=== PATIENT | female | born 1990 | race American Indian/Alaskan Native ===

== ENCOUNTER 2017-11-18 21:59 | Emergency (ER) | payer SELFPAY ==
[2017-11-18 22:39] VITALS: BP 135/82
[2017-11-18] MEDS ORDERED: MOTRIN PO ONE (22:39)
--- NOTE | 2017-11-19 00:05 | XRay Report ---
FINAL REPORT EXAM: XR KNEE 3V LT HISTORY: Left knee pain TECHNIQUE: Three views of the left knee PRIORS: None. FINDINGS: The bones are normally aligned and mineralized. The joint spaces are well-preserved. There is no evidence of acute fracture. The soft tissues are unremarkable. IMPRESSION: No evidence of acute fracture or subluxation. Normal left knee series
--- NOTE | 2017-11-19 02:53 | Emergency Department Report ---
ED Lower Extremity HPI - General Chief Complaint: Extremity Injury, Lower Stated Complaint: LEFT KNEE PAIN Time Seen by Provider: 11/19/17 02:36 Source: patient Mode of arrival: Ambulatory Limitations: No Limitations - History of Present Illness Initial Comments: 27-year-old -[place] female comes to the emergency room after having a trip and fall today at home and injured her left knee. Patient complains of swelling and pain. She reports her pain is a 9 out of 10. Patient reports this happened about 7:30 PM on Friday evening. She did not take anything for pain she was given Motrin in triage which she reports has helped. Patient reports she is able to bear weight no ice applied able to fully bend her knee but to fully extend it causes pain. Patient has no past medical history currently takes no medications has no known drug allergies. MD Complaint: knee injury -: Last night Time: 19:30 (Friday) Injury: Knee: Left (name of swelling) Place: home Severity scale (0 -10): 9 Improves With: NSAID Worsens With: other (fully extension) Context: fall - Related Data Previous Rx's Medication Instructions Recorded Last Taken Type Ibuprofen [Motrin 600 MG tab] 600 mg PO Q8H PRN #15 tablet 11/19/17 Unknown Rx Allergies Allergy/AdvReac Type Severity Reaction Status Date / Time No Known Allergies Allergy Unverified 11/18/17 22:38 ED Review of Systems ROS: Stated complaint: LEFT KNEE PAIN Other details as noted in HPI Comment: All other systems reviewed and negative Musculoskeletal: arthralgia (left knee pain) ED Past Medical Hx - Past Medical History Previous Medical History?: No - Surgical History Past Surgical History?: No - Social History Smoking Status: Never Smoker Substance Use Type: None - Medications Home Medications: Home Medications Medication Instructions Recorded Confirmed Last Taken Type Ibuprofen [Motrin 600 MG tab] 600 mg PO Q8H PRN #15 tablet 11/19/17 Unknown Rx ED Physical Exam - General Limitations: No Limitations General appearance: alert, in no apparent distress - Head Head exam: Present: atraumatic, normocephalic - Eye Eye exam: Present: EOMI - ENT ENT exam: Present: mucous membranes moist - Expanded Lower Extremity Exam Left Knee exam: Present: full ROM, tenderness, swelling. Absent: abrasion, ecchymosis, deformity, crepidus, erythema, effusion Lower Leg exam: Present: normal inspection, full ROM. Absent: tenderness Ankle exam: Present: normal inspection, full ROM. Absent: tenderness Neuro vascular tendon exam: Present: no vascular compromise Gait: Positive: observed and normal - Back Exam Back exam: Present: normal inspection - Neurological Exam Neurological exam: Present: alert, oriented X3 - Psychiatric Psychiatric exam: Present: normal affect, normal mood - Skin Skin exam: Present: warm, dry, intact, normal color. Absent: rash ED Course Vital Signs 11/18/17 22:34 Temperature 97.7 F Pulse Rate 101 H Respiratory 16 Rate Blood Pressure 135/82 O2 Sat by Pulse 99 Oximetry ED Lower Extremity MDM - Radiology Data Radiology results: report reviewed FINAL REPORT EXAM: XR KNEE 3V LT HISTORY: Left knee pain TECHNIQUE: Three views of the left knee PRIORS: None. FINDINGS: The bones are normally aligned and mineralized. The joint spaces are well-preserved. There is no evidence of acute fracture. The soft tissues are unremarkable. IMPRESSION: No evidence of acute fracture or subluxation. Normal left knee series Transcribed By: MLG Dictated By: CHRISTINA ZAMBRANO MD Electronically Authenticated By: CHRISTINA ZAMBRANO MD Signed Date/Time: 11/19/173 DD/ TD/TT: 11/19/173 - Medical Decision Making Patient's been evaluated by this provider fast track. Ibuprofen given for pain management. X-ray of the knee shows normal examination. We'll discharge patient on ibuprofen. Patient to follow-up with her primary care provider except as persisted if worse. Critical care attestation.: If time is entered above; I have spent that time in minutes in the direct care of this critically ill patient, excluding procedure time. ED Disposition Clinical Impression: Left knee pain Qualifiers: Chronicity: acute Qualified Code(s): M25.562 - Pain in left knee Disposition: DC-01 TO HOME OR SELFCARE Is pt being admited?: No Does the pt Need Aspirin: No Condition: Stable Additional Instructions: Please take pain medication as prescribed and as needed. If his symptoms persist or gets worse to follow up with her primary care provider or an orthopedic provider. Prescriptions: Ibuprofen [Motrin 600 MG tab] 600 mg PO Q8H PRN #15 tablet PRN Reason: Pain Referrals: PRIMARY CARE, [Primary Care Provider] - 3-5 Days [facility] [Provider Group] - 3-5 Days [facility] [Provider Group] - 3-5 Days Forms: Work/School Release Form(ED)
== END 2017-11-19 03:58 | disposition home or self-care (01) ==
LOC: ED 21:59
DX: M25.562 Pain in left knee (principal)
CPT/HCPCS: 99283